=== PATIENT | female | born 1965 | race Caucasian/White ===

== ENCOUNTER 2017-08-28 10:43 | Emergency (ER) | payer OTHER ==
[~2017-08-28] VITALS: Ht 157.5 cm; Wt 101.6 kg
[2017-08-28 10:43] VITALS: BP_SYST 151
--- NOTE | 2017-08-28 10:50 | NUR ---
Pt placed in bed 5, report endorsed by Fernando CASTORENA
[2017-08-28] MEDS ORDERED: KETOROLAC TROMETHAMINE 30 MG VIAL IVP ONE (11:00)
[2017-08-28] MEDS ORDERED: HYDROmorphone 1 MG INJ. 1 MG/ML AMPUL IVP ONE (11:00)
[2017-08-28] MEDS ORDERED: DIPHENHYDRAMINE INJ 50 MG/ML VIAL IVP ONE (11:00)
[2017-08-28] MEDS ORDERED: ONDANSETRON HCL 4 MG/2 ML VIAL IVP ONE (11:00)
--- NOTE | 2017-08-28 11:12 | NUR ---
Pt complains of migraine since 0300 this morning with n/v but denies dizziness or fever. Pt took tylenol at 0900 and did not help at all. Pt was dropped off at the ER and needs a wheelchair to be brought into the bed. Pt states has a history of migraines but has not had one for the past couple years. No other injuries/complaints per pt or noted.
--- NOTE | 2017-08-28 11:17 | NUR ---
ER at bedside examining patient.
[2017-08-28] MEDS ORDERED: HYDROmorphone 1 MG INJ. 1 MG/ML AMPUL ONE (11:38)
--- NOTE | 2017-08-28 11:40 | NUR ---
Medications were given to pt, tolerated it well.
--- NOTE | 2017-08-28 12:30 | NUR ---
Pt is resting in bed comfortably with no noted distress or discomfort.
--- NOTE | 2017-08-28 13:30 | NUR ---
Pt states pain has decreased, waiting for ride to pick her up
[2017-08-28 14:14] VITALS: BP_SYST 123
--- NOTE | 2017-08-28 14:14 | NUR ---
Patient given written and verbal discharge instructions and verbalizes understanding. ER MD discussed with patient the results and treatment provided. Patient in stable condition. ID arm band removed. IV catheter removed intact and dressing applied, no active bleeding. Rx of zofran and norco given. Patient educated on pain management and to follow up with PMD. Pain Scale 2. Opportunity for questions provided and answered.
== END 2017-08-28 14:14 | disposition home or self-care (01) ==
LOC: SED 10:43
DX: G43.909 Migraine, unspecified, not intractable, without status migrainosus (principal)
CPT/HCPCS: 96374; 96375; 99284; J1170; J1200; J1885; J2405